=== PATIENT | male | born 1990 | race Caucasian/White ===

== ENCOUNTER 2019-07-04 14:48 | Inpatient (IN) | payer MEDICAID ==
[~2019-07-04] VITALS: Ht 172.7 cm; Wt 60.0 kg
[2019-07-04 15:57] LABS: BASOPHILS # (AUTO) 0.1 X10'3 (0-0.2); BASOPHILS % (AUTO) 0.9 % (0-1); EOSINOPHILS # (AUTO) 0.3 X10'3 (0-0.9); EOSINOPHILS % (AUTO) 2.5 % (0-6); HEMATOCRIT 40.7 % (42.0-52.0); HEMOGLOBIN 13.5 g/dl (14.0-17.9); LYMPHOCYTES # (AUTO) 1.4 X10'3 (1.1-4.8); LYMPHOCYTES % (AUTO) 11.3 % (21-51); MEAN CORPUSCULAR HEMOGLOBIN 28.1 PG (27.0-31.0); MEAN CORPUSCULAR HGB CONC 33.3 g/dL (33.0-36.5); MEAN CORPUSCULAR VOLUME 84.5 FL (78-98); MEAN PLATELET VOLUME 7.2 FL (7.4-10.4); MONOCYTES # (AUTO) 0.6 X10'3 (0-0.9); NEUTROPHILS # (AUTO) 9.9 X10'3 (1.8-7.7); NEUTROPHILS % (AUTO) 80.3 % (42-75); PLATELET COUNT 361 X10'3 (140-440); RED BLOOD COUNT 4.81 X10'6 (4.70-6.10); RED CELL DISTRIBUTION WIDTH 14.9 % (11.5-14.5); WHITE BLOOD COUNT 12.3 X10'3 (4.5-11.0)
[2019-07-04 16:29] LABS: ALANINE AMINOTRANSFERASE 30 U/L (12-78); ALBUMIN 2.8 G/DL (3.4-5.0); ALBUMIN/GLOBULIN RATIO 0.7 (1.1-1.5); ALKALINE PHOSPHATASE 93 IU/L (46-116); ANION GAP 11 (8-16); ASPARTATE AMINO TRANSFERASE 24 U/L (10-37); BILIRUBIN,TOTAL 0.2 MG/DL (0.1-1.0); BLOOD UREA NITROGEN 14 MG/DL (7-18); BUN/CREATININE RATIO 13.9 (5.4-32.0); CALCIUM 8.9 MG/DL (8.5-10.1); CHLORIDE 101 MMOL/L (99-107); CREATININE 1.01 MG/DL (0.60-1.10); GLUCOSE 179 MG/DL (70-104); SODIUM 138 MMOL/L (135-145); TOTAL CARBON DIOXIDE 26.2 MMOL/L (24-32); TOTAL PROTEIN 7.1 G/DL (6.4-8.2); eGFR 87 ML/MIN
[2019-07-04] MEDS ORDERED: cefepime 1GM/NS ADD-VANTAGE 100 ML IV ONE (17:15)
[2019-07-04] MEDS ORDERED: nicotine 21mg patch - 24 hr TD ONE (17:15)
[2019-07-04] MEDS ORDERED: normal saline 1000ML IV soln IVB ONE (17:15)
[2019-07-04] MEDS ORDERED: vancomycin/NS 1 GM ADD-VANTAGE 250 ML IV ONE (17:15)
[2019-07-04] MEDS ORDERED: acetaminophen 325mg tablet PO PRN (17:30)
[2019-07-04] MEDS ORDERED: ondansetron/PF 4mg/2ml inj IV PRN (17:30)
[2019-07-04] MEDS ORDERED: magnesium hydroxide 30ml (MOM) UD suspension PO PRN (17:30)
[2019-07-04] MEDS ORDERED: mag hydrox/Alum hydrox/simeth 30ml oral suspension PO PRN (17:30)
[2019-07-04] MEDS ORDERED: NO HOME MEDS (17:38)
--- NOTE | 2019-07-04 17:44 | NUR ---
assisting RN with pt care, hospitalist was at bedside to eval pt, ok for pt to eat. Gave pt sandwich, milk, applesauce, gaurav well, no n/v
[2019-07-04 18:00] VITALS: BP 111/60
[2019-07-04] MEDS: cefepime 1GM in D5W 50mL 50 ML IV SCH (18:18)
[2019-07-04] MEDS: normal saline 1000ml 1,000 ML IV SCH (18:18)
--- NOTE | 2019-07-04 18:45 | NUR ---
Patient in room [facility]. I have received report from Dillon KLEIN and had the opportunity to ask questions and assume patient care.
[2019-07-04 19:00] VITALS: BP 111/60
[2019-07-04] MEDS ORDERED: FLU VACC QS2019-20 36MOS UP/PF 60 MCG/0.5 ML SYRINGE IMVAC ONE (19:20)
[2019-07-04] MEDS: heparin, porcine 5000 units/ml vial SQ SCH (20:11)
[2019-07-04 22:00] VITALS: BP 96/50
[2019-07-04 22:38] LABS: CLARITY,URINE CLOUDY (Clear); COLOR,URINE YELLOW (Yellow); GLUCOSE, URINE NEGATIVE (Neg); KETONES,URINE NEGATIVE (Neg); LEUKOCYTE ESTERASE ,URINE NEGATIVE (Neg); NITRITES, URINE NEGATIVE (Neg); OCCULT BLOOD,URINE NEGATIVE (Neg); PROTEIN,URINE NEGATIVE (Neg); UROBILINOGEN,URINE 0.2 E.U/dL (0.2-1.0)
[2019-07-04 22:46] LABS: UA COLLECTION TYPE CLN CATCH MIDSTREAM
[2019-07-04 22:47] LABS: AMORPHOUS PHOSPHATES 4+; BACTERIA,URINE NONE SEEN /HPF (Neg); RBC,URINE NONE SEEN /HPF (0-2); SQUAMOUS EPITHELIAL CELL,UR FEW /LPF (FEW); WBC,URINE NONE SEEN /HPF (0-4)
[2019-07-04 22:48] LABS: MUCUS STRANDS FEW /LPF (Neg)
[2019-07-04] MEDS: levoFLOXACIN-Levaquin 750MG/D5 150 ML IV SCH (22:51)
[2019-07-04 22:56] LABS: URINE AMPHETAMINE SCREEN POSITIVE (Neg); URINE BARBITUATE SCREEN NEGATIVE (Neg); URINE BENZODIAZEPINES SCREEN NEGATIVE (Neg); URINE CANNABINOID SCREEN POSITIVE (Neg); URINE COCAINE SCREEN NEGATIVE (Neg); URINE METHADONE SCREEN NEGATIVE (Neg); URINE OPIATE SCREEN NEGATIVE (Neg); URINE PHENCYCLIDINE SCREEN NEGATIVE (Neg)
--- NOTE | 2019-07-05 01:13 | NUR ---
pt arrived on unit at 1850, pt alert and in no apparent distress.
[2019-07-05] MEDS: vancomycin/NS 1 GM ADD-VANTAGE 250 ML IV SCH ×3 (02:15→18:15)
--- NOTE | 2019-07-05 03:28 | NUR ---
Received report from Olivia KLEIN pt is resting on RA in no apparent distress
[2019-07-05] MEDS: normal saline 1000ml 1,000 ML IV SCH ×3 (03:30→23:49)
--- NOTE | 2019-07-05 04:00 | NUR ---
Problems reprioritized. Patient report given, questions answered & plan of care reviewed with Karena KLEIN.
--- NOTE | 2019-07-05 06:16 | NUR ---
Gave report to Nubia KLEIN pt is resting on RA, in no apparent distress
[2019-07-05 07:00] VITALS: BP 102/47
[2019-07-05 08:47] LABS: BASOPHILS # (AUTO) 0.1 X10'3 (0-0.2); BASOPHILS % (AUTO) 1.3 % (0-1); EOSINOPHILS # (AUTO) 0.3 X10'3 (0-0.9); HEMATOCRIT 41.4 % (42.0-52.0); HEMOGLOBIN 13.8 g/dl (14.0-17.9); LYMPHOCYTES # (AUTO) 1.5 X10'3 (1.1-4.8); LYMPHOCYTES % (AUTO) 14.5 % (21-51); MEAN CORPUSCULAR HEMOGLOBIN 28.5 PG (27.0-31.0); MEAN CORPUSCULAR HGB CONC 33.4 g/dL (33.0-36.5); MEAN CORPUSCULAR VOLUME 85.3 FL (78-98); MEAN PLATELET VOLUME 7.5 FL (7.4-10.4); MONOCYTES # (AUTO) 0.9 X10'3 (0-0.9); MONOCYTES % (AUTO) 8.2 % (2-12); NEUTROPHILS # (AUTO) 7.7 X10'3 (1.8-7.7); PLATELET COUNT 408 X10'3 (140-440); RED BLOOD COUNT 4.85 X10'6 (4.70-6.10); RED CELL DISTRIBUTION WIDTH 14.8 % (11.5-14.5); WHITE BLOOD COUNT 10.5 X10'3 (4.5-11.0)
[2019-07-05 09:02] LABS: ALBUMIN 2.8 G/DL (3.4-5.0); ANION GAP 8 (8-16); BLOOD UREA NITROGEN 19 MG/DL (7-18); BUN/CREATININE RATIO 22.4 (5.4-32.0); CHLORIDE 103 MMOL/L (99-107); CREATININE 0.85 MG/DL (0.60-1.10); GLUCOSE 107 MG/DL (70-104); POTASSIUM 4.2 MMOL/L (3.5-5.1); SODIUM 141 MMOL/L (135-145); TOTAL CARBON DIOXIDE 29.7 MMOL/L (24-32); eGFR > 90 ML/MIN
[2019-07-05] MEDS: lactobacillus rhamnosus 10,000 MMU CELLS/CAPSULE PO SCH ×2 (09:04→20:24)
[2019-07-05] MEDS: levoFLOXACIN-Levaquin 750MG/D5 150 ML IV SCH (09:04)
[2019-07-05] MEDS: heparin, porcine 5000 units/ml vial SQ SCH ×2 (09:04→20:00)
--- NOTE | 2019-07-05 10:42 | NUR ---
PAGER ID: [phone] MESSAGE: REN ALEXANDER 340B PT. STATES HE WANTS TO LEAVE AMA BECAUSE HE CANNOT SMOKE RIGHT NOW. OLD NICOTINE PATCH FELL OFF. CAN WE HAVE A ONE TIME ONLY NICOTINE PATCH AND SOME ATIVAN PLEASE? RAEANN [phone]
[2019-07-05] MEDS ORDERED: nicotine 21mg patch - 24 hr TD ONE (10:45)
[2019-07-05] MEDS ORDERED: nicotine prolacrilex 2mg gum BC PRN (10:45)
[2019-07-05] MEDS ORDERED: LORazepam 1 MG tablet PO PRN (10:45)
--- NOTE | 2019-07-05 11:24 | NUR ---
PT. REFUSING TO HAVE WOUND PICTURES OF RIGHT HAND TAKEN.
[2019-07-05 12:05] VITALS: BP 110/66
[2019-07-05] MEDS: cefepime 1GM in D5W 50mL 50 ML IV SCH (16:42)
[2019-07-05] MEDS ORDERED: VANCOMYCIN LEVEL IV ONE (17:30)
[2019-07-05 18:00] VITALS: BP 105/62
--- NOTE | 2019-07-05 18:10 | NUR ---
Problems reprioritized. Patient report given, questions answered & plan of care reviewed with Irais KLEIN. Pt. in room resting comfortably with rise and fall of chest.
--- NOTE | 2019-07-05 18:34 | NUR ---
Assumed care of patient with verbal report from Nubia KLEIN. Patient resting with eyes closed at this time. No distress noted.
[2019-07-05 22:00] VITALS: BP 101/56
[2019-07-06] MEDS: vancomycin/NS 1 GM ADD-VANTAGE 250 ML IV SCH (01:37)
[2019-07-06 06:15] LABS: BASOPHILS # (AUTO) 0.1 X10'3 (0-0.2); BASOPHILS % (AUTO) 1.2 % (0-1); EOSINOPHILS # (AUTO) 0.5 X10'3 (0-0.9); EOSINOPHILS % (AUTO) 4.8 % (0-6); HEMATOCRIT 39.9 % (42.0-52.0); HEMOGLOBIN 13.5 g/dl (14.0-17.9); LYMPHOCYTES # (AUTO) 2.2 X10'3 (1.1-4.8); LYMPHOCYTES % (AUTO) 23.4 % (21-51); MEAN CORPUSCULAR HEMOGLOBIN 28.3 PG (27.0-31.0); MEAN CORPUSCULAR HGB CONC 33.7 g/dL (33.0-36.5); MEAN CORPUSCULAR VOLUME 83.8 FL (78-98); MEAN PLATELET VOLUME 7.5 FL (7.4-10.4); MONOCYTES # (AUTO) 0.9 X10'3 (0-0.9); MONOCYTES % (AUTO) 9.4 % (2-12); NEUTROPHILS # (AUTO) 5.7 X10'3 (1.8-7.7); NEUTROPHILS % (AUTO) 61.2 % (42-75); PLATELET COUNT 437 X10'3 (140-440); RED BLOOD COUNT 4.76 X10'6 (4.70-6.10); RED CELL DISTRIBUTION WIDTH 14.6 % (11.5-14.5); WHITE BLOOD COUNT 9.4 X10'3 (4.5-11.0)
--- NOTE | 2019-07-06 06:22 | NUR ---
Patient in room [facility]. I have received report from ERNIE PEREYRA and had the opportunity to ask questions and assume patient care.
--- NOTE | 2019-07-06 06:28 | NUR ---
Problems reprioritized. Patient report given, questions answered & plan of care reviewed with Iesha KLEIN.
[2019-07-06 06:30] LABS: ALBUMIN 2.7 G/DL (3.4-5.0); ANION GAP 8 (8-16); BLOOD UREA NITROGEN 21 MG/DL (7-18); BUN/CREATININE RATIO 24.7 (5.4-32.0); CALCIUM 9.1 MG/DL (8.5-10.1); CHLORIDE 104 MMOL/L (99-107); CREATININE 0.85 MG/DL (0.60-1.10); GLUCOSE 114 MG/DL (70-104); POTASSIUM 4.1 MMOL/L (3.5-5.1); SODIUM 140 MMOL/L (135-145); TOTAL CARBON DIOXIDE 28.2 MMOL/L (24-32); eGFR > 90 ML/MIN
[2019-07-06] MEDS: lactobacillus rhamnosus 10,000 MMU CELLS/CAPSULE PO SCH (07:05)
[2019-07-06] MEDS: heparin, porcine 5000 units/ml vial SQ SCH (07:09)
[2019-07-06 07:11] VITALS: BP 112/64
[2019-07-06] MEDS ORDERED: nicotine 21mg patch - 24 hr TD SCH (08:25)
--- NOTE | 2019-07-06 08:38 | NUR ---
PATIENT TURNED FACING WALL IN BED AND NO EYE CONTACT AND AND SOUNDS AGITATED STATING, " I WANT TO SEE MY DR NOW. I WANT TO GET THE FUCK OUT OF HERE. JESSICA BEEN HERE 3 DAYS AND YOU ALL STILL DON;T KNOW WHAT'S GOING ON." EDUCATED PATIENT THAT HE IS HERE RECEIVING ANTIBIOTICS AND THAT HE DOES HAVE POSITIVE BLOOD CULTURES BUT WE ARE WAITING FOR SENSITIVITY. PATIENT STATES," THAT'S BULLSHIT. I DON'T HAVE ANYTHING BUT MRSA. IT'S BEEN 3 DAYS AND YOU GUYS STILL DON'T KNOW WHAT'S GOING ON? I WANT TO GET OUT OF HERE. GIVE ME MY PAPER WORK. GET THIS THING OUT (POINTING TO IV). DR OLIVEIRA NOTIFIED. IV DC'D AND PATIENT LEFT AMA. Addendum: 07/06/19 at 0845 by Iesha Encarnacion RN PATIENT DID NOT WANT TO WAIT TO SPEAK TO DR WHARTON. PATIENT LEFT WITH ALL HIS PERSONAL BELONGINGS.
[2019-07-06] MEDS ORDERED: LEVO750T21 PO (08:51)
--- NOTE | 2019-07-06 09:00 | NUR ---
DR. WHARTON PLACED DISCHARGE ORDERS FOR PATIENT. CALLED DR WHARTON TO LET HIM KNOW THAT PATIENT HAD ALREADY LEFT AMA PRIOR TO DISCHARGE ORDERS BEING PLACED. DR WHARTON WANTED THE PATIENT TO BE CALLED AND FOR PRESCRIPTION FOR LEVAQUIN TO BE CALLED IN FOR PATIENT AT PREFERRED PHARMACY. PATIENT HAS NO CONTACT INFORMATION EXCEPT FOR HIS MOTHER KRISTIN. KRISTIN'S NUMBER [id number] CALLED AND LEFT MESSAGE FOR KRISTIN TO CALL BACK.
[2019-07-06] MEDS ORDERED: VANCOmycin 1250MG/NS 250ml Bag 250 ML IV SCH (10:00)
[2019-07-06] MEDS ORDERED: levoFLOXACIN 750MG TABLET PO SCH (11:00)
--- NOTE | 2019-07-06 13:04 | NUR ---
Patient's mother nilesh called back. She states she does not have a contact info for patient as she has "not spoken to him in over a month."
[2019-07-06] MEDS ORDERED: ONDA8TAB6 PO (13:39)
[2019-07-06] MEDS ORDERED: DOXY100C43 PO (13:39)
[2019-07-07] MEDS ORDERED: VANCOMYCIN LEVEL IV ONE (09:30)
== END 2019-07-06 08:42 | disposition left against medical advice (07) | DRG 720 ==
LOC: ER 14:49 → ED HOLD 17:30 → SUR 3N 19:02
PROVIDERS: ADMIT Family Medicine; ATTEND Hospitalist
DX: A41.9 Sepsis, unspecified organism (principal); F12.90 Cannabis use, unspecified, uncomplicated; F17.210 Nicotine dependence, cigarettes, uncomplicated; L03.113 Cellulitis of right upper limb; T63.301A Toxic effect of unspecified spider venom, accidental (unintentional), initial encounter; Y93.89 Activity, other specified; Y92.89 Other specified places as the place of occurrence of the external cause; Y99.8 Other external cause status; F15.90 Other stimulant use, unspecified, uncomplicated; Z28.21 Immunization not carried out because of patient refusal; Z53.29 Procedure and treatment not carried out because of patient's decision for other reasons
CPT/HCPCS: 36415; 80048; 80053; 80202; 80305; 81001; 83605; 84145; 85025; 87040; 87070; 87077; 87081; 87186; 99285; G0378; J0692; J1644; J1956; J3370; J7030; Q2037

== ENCOUNTER 2019-07-06 11:52 | Emergency (ER) | payer MEDICAID ==
[~2019-07-06] VITALS: Ht 172.7 cm; Wt 61.4 kg
[~2019-07-06 11:52] MED LIST: LEVO750T21 PO; NO HOME MEDS
[2019-07-06 13:28] VITALS: BP 108/66
[2019-07-06] MEDS ORDERED: DOXYCYCLINE 100MG CAPSULE PO STA (13:34)
[2019-07-06] MEDS ORDERED: ondansetron 4mg rapidly disintigrating tab PO ONE (13:35)
[2019-07-06] MEDS ORDERED: DOXY100C43 PO (13:39)
[2019-07-06] MEDS ORDERED: ONDA8TAB6 PO (13:39)
[2019-07-06] MEDS ORDERED: bacitracin 15gm ointment TP ONE (13:40)
== END 2019-07-06 13:50 | disposition home or self-care (01) ==
LOC: ER 11:52
DX: S61.401D Unspecified open wound of right hand, subsequent encounter (principal); L03.113 Cellulitis of right upper limb; F12.90 Cannabis use, unspecified, uncomplicated; Z86.14 Personal history of Methicillin resistant Staphylococcus aureus infection; Z98.890 Other specified postprocedural states; Z59.0 Homelessness; Z79.2 Long term (current) use of antibiotics; Z79.899 Other long term (current) drug therapy; X58.XXXD Exposure to other specified factors, subsequent encounter
CPT/HCPCS: 99284